=== PATIENT | female | born 1945 | race Caucasian/White ===

== ENCOUNTER 2021-08-17 03:18 | Outpatient (CLI) | payer MEDICARE, BC, SELFPAY ==
[2021-08-17 10:48] LABS: Source Nasal/Nares
[2021-08-17 14:23] LABS: COVID-19 PCR Negative (Negative)
== END 2021-08-17 03:19 | disposition home or self-care (01) ==
LOC: LBO 03:18
PROVIDERS: PCP Internal Medicine; Visit Provider Ophthalmology
DX: Z20.822 Contact with and (suspected) exposure to COVID-19 (principal); Z01.818 Encounter for other preprocedural examination
CPT/HCPCS: 87635

== ENCOUNTER 2021-08-20 07:50 | Day surgery (SDC) | payer MEDICARE, BC, SELFPAY ==
[2021-08-20 08:50] VITALS: BP 147/99; PULSE 72; RESP 16; TEMP 36.5; O2SAT 97
[2021-08-20] MEDS: Tropicam./Phenyleph. (1/2.5%) 5 ML BTL OS ×3 (09:04→09:17)
--- NOTE | 2021-08-20 09:24 | ANES.PREOP_ITS ---
General Info Date of Service Date Performed: 08/20/21 Height: 5 ft Weight: 63.9 kg Body Mass Index (BMI): 27.5 Surgical Procedure: Operation Date: 08/20/21 10:40 Proposed Procedures Side Surgeon p Cataract Extraction with IOL Implant Left Roberto Mckeon MD Meds Allergies and Home Medications Allergies Allergy/AdvReac Type Severity Reaction Status Date / Time diazepam Allergy Unknown Unknown Unverified 08/20/21 08:54 oxycodone Allergy Unknown Other (See Unverified 08/20/21 08:54 Comment) thiamine (vitamin B1) Allergy Unknown Itching Unverified 08/20/21 08:54 morphine AdvReac Intermediate Other (See Unverified 08/20/21 08:54 Comment) Home Medication Medication Instructions Recorded abatacept (with maltose) [Orencia 250 ml IV DIRECTED 08/16/21 (with maltose)] alendronate 70 mg PO QWEEK 08/16/21 aspirin 81 mg PO DAILY 08/16/21 cholecalciferol (vitamin D3) 25 mcg PO DAILY 08/16/21 [Vitamin D3] dulaglutide 0.75 mg SUBCUT QWEEK 08/16/21 fluoxetine 10 mg PO DAILY 08/16/21 folic acid 1 mg PO DAILY 08/16/21 ibuprofen 200 mg PO Q6H PRN 08/16/21 insulin aspart U-100 [Novolog 4 unit SUBCUT HS 08/16/21 U-100 Insulin aspart] insulin detemir U-100 16 unit SUBCUT BID 08/16/21 lisinopril 10 mg PO DAILY 08/16/21 metformin 1,000 mg PO BID 08/16/21 omeprazole 40 mg PO DAILY 08/16/21 pravastatin 10 mg PO DAILY 08/16/21 sitagliptin 100 mg PO DAILY 08/16/21 insulin detemir U-100 [Levemir 16 unit SUBCUT BID 08/20/21 Flexpen] Current Visit Medications: Current Medications Generic Name Dose Route Start Last Admin Trade Name Freq PRN Reason Stop Dose Admin Acetaminophen 1,000 mg 08/20/21 06:52 Acetaminophen 500 Mg Tab PO Q4H PRN PRN Miscellaneous Medication 0 ml 08/20/21 06:52 Prednisolone 1%, Moxifloxacin 0.5%, Nepafenac 0.1% 5ml Btl OS DIRECTED BARTOLOME Miscellaneous Medication 0 ml 08/20/21 06:52 08/20/21 09:17 Tropicam./Phenyleph. (1/2.5%) 5 Ml Btl OS 1 drp DIRECTED BARTOLOME Administration Tetracaine HCl 0 ml 08/20/21 06:52 Tetracaine 0.5% 4 Ml Btl OS DIRECTED [facility] Medical History Medical History (Updated 08/20/21 @ 08:51 by Viktoriya Barahona) Chest pain Per office note non-cardiac, has some right breast tenderness for few weeks prior to contusion to chest from wall. Will consider luan when hematomas clear Diabetes mellitus Dorsalgia HTN (hypertension) Hx of compression fracture of spine Hx of osteoarthritis Hx of sleep apnea Hypercalcemia Memory change Pulmonary fibrosis Seropositive rheumatoid arthritis Surgical History Surgical History History of carpal tunnel surgery left Hx of appendectomy Hx of cholecystectomy Hx of hysterectomy Hx of neck surgery Hx of tonsillectomy Tobacco Smoking/Tobacco Use Status: Former Tobacco Use Alcohol Alcohol Intake: current Alcohol intake frequency: holidays/special occasions only Substance Use Substance use: Never Substance use type: does not use Details: uses hemp oil Vital Signs and Lab Results Vital Signs Most Recent Vital Signs in EMR: Most Recent Vital Signs Temp Pulse Resp BP Pulse Ox 36.5 C 72 16 147/99 H 97 08/20/21 08:50 08/20/21 08:50 08/20/21 08:50 08/20/21 08:50 08/20/21 08:50 Point of Care Results Point of Care Results: Finger Stick Blood Glucose 140 08/20/21 08:56 Lab Results Blood Type / Crossmatch: No Data to Display Complete Blood Count: No Data to Display Complete Metabolic Panel: No Data to Display Liver Function Panel: No Data to Display Coagulation Panel: No Data to Display Cardiac Panel: No Data to Display Arterial Blood Gas: No Data to Display Venous Blood Gas: No Data to Display Pancreas Panel: No Data to Display Thyroid Panel: No Data to Display Infectious Disease: Coronavirus (COVID-19)(PCR) Negative (Negative) 08/17/21 08:50 08/17/21 Coronavirus 2019 Source Nasal/Nares 08/17/21 08:50 08/17/21 Blood Cultures: No Data to Display Toxicology Panel: No Data to Display Anesthesia Assessment and Plan Anesthesia History Personal History: PONV Family History: No Family History of Anesthesia Complications Exercise Tolerance Exercise Tolerance: Metabolic Equivalents>4 Pertinent Negatives Pertinent Negatives: No Symptoms of GERD (Well controlled with medication/ hx hiatal hernia), No Major Cardiovascular Symptoms or Complaints, No Major Pulmonary Symptoms or Complaints and No History of CVA/TIA Cardiac & Pulmonary Exam Cardiac Exam: Normal S1/S2 Heart Sounds and Heart Murmur Present Pulmonary Exam: Clear Bilateral Breath Sounds Implantable Cardiac Device Does patient have a Pacemaker or an ICD?: No Airway Exam Known Difficult Airway: No Mallampati Class: 1 Mouth Opening: Normal (> 3cm) Thyromental Distance: Greater than 3 cm Neck Range of Motion: Full ROM Neck Circumference: Normal Teeth Condition: Removable Dentures/Plates Upper and Removable Dentures/Plates Lower ASA Classification ASA Score: ASA 2 Emergency Case?: No NPO Status NPO Status: NPO Clears >2 hours, Solids >8 hours Anesthesia Plan Resuscitation Status: Full Code Anesthesia Technique: MAC Anesthesia Airway Planned: Natural Airway Monitors Used: Standard Monitors
[2021-08-20 09:26] VITALS: BMI 27.5
[2021-08-20] MEDS: Povidone-Iodine Ophth 30 ML BTL (09:43)
[2021-08-20] MEDS: Tetracaine 0.5% 4 ML BTL OS (09:43)
[2021-08-20] MEDS: Lidocaine 2% Jelly 6 ML SYR (09:43)
[2021-08-20] MEDS: Duovisc Viscoelastic System EACH 1 EACH (09:49)
[2021-08-20] MEDS: Balanced Salt Soln.-PLUS 500 ML BAG (09:49)
[2021-08-20] MEDS: Lidocaine 1% Pres-Free 5 ML VIAL (09:50)
--- NOTE | 2021-08-20 10:14 | PDOC.DSDIS_ITS ---
Discharge Plan Disposition Patient Disposition: HOME Condition: Good Discharge Details Attending Provider: Roberto Mckeon Primary Care Provider: Pedro Luis Anderson [facility] and New Rx's Prescriptions: No Action alendronate 70 mg Tablet 70 mg PO QWEEK RF: 0 omeprazole 40 mg Capsule,Delayed Release(Dr/Ec) 40 mg PO DAILY RF: 0 aspirin 81 mg Capsule,Delayed Release(Dr/Ec) 81 mg PO DAILY RF: 0 pravastatin 10 mg Tablet 10 mg PO DAILY RF: 0 insulin aspart U-100 [Novolog U-100 Insulin aspart] 100 unit/mL Solution 4 unit subcut HS RF: 0 metformin 1,000 mg Tablet 1,000 mg PO BID RF: 0 lisinopril 10 mg Tablet 10 mg PO DAILY RF: 0 fluoxetine 10 mg Capsule 10 mg PO DAILY RF: 0 ibuprofen 200 mg Tablet 200 mg PO Q6H PRNRF: 0 folic acid 1 mg Tablet 1 mg PO DAILY RF: 0 cholecalciferol (vitamin D3) [Vitamin D3] 25 mcg (1,000 unit) Capsule 25 mcg PO DAILY RF: 0 Orencia (with maltose) 250 mg Recon Soln 250 ml IV DIRECTED RF: 0 insulin detemir U-100 100 unit/mL (3 mL) Insulin Pen 16 unit SUBCUT BID RF: 0 sitagliptin 100 mg Tablet 100 mg PO DAILY RF: 0 dulaglutide 0.75 mg/0.5 mL Pen Injector 0.75 mg SUBCUT QWEEK RF: 0 Levemir Flexpen 100 unit/mL (3 mL) Insulin Pen 16 unit SUBCUT BID RF: 0 Discharge Instructions Stand Alone Forms: Post-op Topical Cataract, Yemi Ruby (DSU) Discharge Orders Discharge Orders: Discharge Order (Routine); Ordered 08/20/21 Ordered By: Roberto Mckeon DS: Diagnosis Discharge Diagnosis (1) Cortical cataract of left eye: Status: Resolved (2) Nuclear sclerotic cataract of left eye: Status: Resolved
[2021-08-20 10:15] VITALS: BP 189/72; PULSE 80; RESP 16; TEMP 36.4; O2SAT 95
--- NOTE | 2021-08-20 10:15 | W.ANESPOSTOP ---
Postoperative Evaluation Date, Time and Location Date Performed: 08/20/21 Time Performed: 10:15 Patient Location: Day Surgery Unit Vital Signs Most Recent Imported Vital Signs: Most Recent Vital Signs Temp Pulse Resp BP Pulse Ox 36.5 C 72 16 147/99 H 97 08/20/21 08:50 08/20/21 08:50 08/20/21 08:50 08/20/21 08:50 08/20/21 08:50 Most Recent Manually Entered Vital Signs: Adult Blood Pressure: 189/72 Heart Rate: 74 Respirations: 10 Oxygen Saturation (%): 95 Temperature (C): 36.4 C Pain Score (0-10 Scale): 0 Pain Score Most Recent Pain Score: Most Recent Pain Score Pain Level 0 08/20/21 08:50 Assessment Mental Status: Awake (Alert & Oriented to Patient Baseline) Airway and Respiratory Function: Patent airway with normal (patient baseline) respiratory exam Cardiovascular Function: Hemodynamically Stable Hydration Status: Adequately Hydrated Nausea & Vomiting: No Nausea or Vomiting Pain: Pt. Denies Any Pain Peripheral Nerve Block: Patient did not receive a nerve block
--- NOTE | 2021-08-20 10:16 | ROE_ITS ---
Date of service: 08/20/21 Time of Service: 10:16 Operative Note Operative Note DATE OF PROCEDURE: 08/20/21 PRE-OP DIAGNOSIS: Nuclear/cortical cataract, left eye POST-OP DIAGNOSIS: same PROCEDURE: Cataract extraction using phacoemulsification with intraocular lens implant, left eye SURGEON: Roberto Mckeon ANESTHESIA TYPE: Local By Surgeon and MAC Refer to Anesthesia Record PATHOLOGY: none sent COMPLICATIONS: None Patient was transported to: same day Patient's condition: stable Implants: Damion [employer] / [employer] Tecnis [id number] Indications: Progressive decreased vision due to cataract, left eye Procedure Description: CATARACT SURGERY OPERATIVE REPORT PREOPERATIVE DIAGNOSIS: 1. Nuclear/cortical cataract, left eye POSTOPERATIVE DIAGNOSIS: Same OPERATION: 1. Cataract extraction using phacoemulsification with posterior chamber intraocular lens implant, left eye. IOL: IOL Ranch Supervisor/Model: [employer] Damion / JILLIAN Tecnis [id number] IOL Power: + 26.0 diopters IOL Serial Number: [id number] Optic Diameter: 6.0 mm Haptic/Overall Diameter: 13.0 mm PHACO INFO: JooSM[employer] Suiteurion Vision System with OZil and Active Fluidics Cumulative Dispersed Energy (CDE): 8.75 seconds SURGEON: Roberto Mckeon MD, PHAN ANESTHESIA: Monitored A [facility] (MAC), with local sub-tenon's anesthetic infiltration COMPLICATIONS: None SPECIMENS: None INDICATIONS FOR PROCEDURE: The patient is a 75-year-old lady with history of diminished visual acuity in both eyes secondary to the development of bilateral nuclear and cortical cataract. The option of cataract surgery was offered to the patient and she felt she was symptomatic enough that she wished to proceed. PROCEDURE: The correct surgical eye was identified and marked as the left eye and the pupil was dilated in the preoperative area using mydriatics and cycloplegics. The dilated pupil size was 7.0 mm. She elected to proceed without oral sedation. The patient was brought to the operating room where cardiopulmonary monitoring was instituted and surgical time-out was performed, confirming the correct operative eye and IOL power. Topical anesthesia was administered and ophthalmic povidone-iodine 5% was instilled into the conjunctival fornices. Lidocaine gel was applied to the cornea and the ismael-ocular area was prepped with Betadine 10% solution and draped in the usual sterile fashion for intraocular surgery, including an aperture drape. A Tegaderm transparent film dressing was cut in half and used to cover the lashes and lid margins. Care was taken to sequester the lashes and lid margins under the Tegaderm dressing. A lid speculum was placed between the lids of the operative eye and the Cain-Karina operating microscope was maneuvered into position. Rohan scissors were then used to make a conjunctival buttonhole approximately 6mm posterior to the limbus in the inferonasal quadrant. Blunt dissection was carried out to expose bare sclera, and a blunt-tipped sub-tenon?s anesthesia cannula was introduced and passed posteriorly along the globe where non- preserved plain lidocaine was injected into posterior sub-Tenon?s space. A sideport knife was used to make a paracentesis port superiorly/superiortempo rally. Intraocular phenylephrine/lidocaine was injected int the anterior chamber.. The anterior chamber was filled with viscoelastic. A 2.4mm keratome knife was used to create a half-thickness groove at the limbus and then to construct a three-plane near-clear corneal tunnel extending 2.0mm into clear cornea at the 3:00 position. A flap was raised on the anterior capsule and capsulorhexis forceps were used to complete a continuous curvilinear capsulorhexis of 5.0 mm. The eye had to be fixated with the second hand, due to written, wild eye movements. Balanced salt solution was then used to perform cortical cleaving hydrodissection and nuclear hydrodelineation until the lens could be freely rotated within the capsular bag. The lens nucleus was then disassembled and removed within the capsular bag and iris plane using phacoemulsification. Residual cortical material was removed using the 45-degree angled silicone I/A tip with 0.3mm port. The posterior capsule was carefully polished to remove as much residual lens epithelial cells as safely possible. The capsular bag was then inflated and the anterior chamber deepened with viscoelastic. The lens implant described above was inserted into the capsular bag using the JILLIAN [place] Injector. A Kuglen hook was used to dial the IOL into position. Residual viscoelastic was then removed first from posterior to the IOL, then from the anterior chamber using the I/A handpiece. The lens implant was noted to center nicely within the capsular bag. The incisions were stromally hydrated, and the anterior chamber was reformed using BSS. Then 0.5cc of moxifloxacin 1.0mg/ml were injected into the capsular bag and anterior chamber. The incisions were checked with a Weck spear and found to be secure. Several drops of ophthalmic povidone-iodine 5% were then applied to the eye followed by two drops of Imprimis combination prednisolone/moxifloxacin/nepafenac solution. The drapes were removed and a clear plastic protective eye shield was placed over the eye. The patient was then returned to Same Day Surgery in stable condition.
[2021-08-20 10:17] VITALS: BP 189/72; PULSE 74; RESP 10; TEMPC 36.4; O2SAT 95
== END 2021-08-20 10:41 | disposition home or self-care (01) ==
PROVIDERS: PCP Family Medicine; Visit Provider Ophthalmology
PROC: (CPT 66984; principal; 2021-08-20 10:30)
DX: H25.12 Age-related nuclear cataract, left eye (principal); E11.9 Type 2 diabetes mellitus without complications; I10 Essential (primary) hypertension
CPT/HCPCS: 66984; V2632

== ENCOUNTER 2021-08-31 02:32 | Outpatient (CLI) | payer MEDICARE, BC, SELFPAY ==
[2021-08-31 11:19] LABS: Source Nasal/Nares
[2021-08-31 14:11] LABS: COVID-19 PCR Negative (Negative)
== END 2021-08-31 02:33 | disposition home or self-care (01) ==
LOC: LBO 02:32
PROVIDERS: PCP Family Medicine; Visit Provider Ophthalmology
DX: Z20.822 Contact with and (suspected) exposure to COVID-19 (principal); Z01.818 Encounter for other preprocedural examination
CPT/HCPCS: 87635

== ENCOUNTER 2021-09-03 08:05 | Day surgery (SDC) | payer MEDICARE, BC, SELFPAY ==
[2021-09-03 08:39] VITALS: BP 178/81; PULSE 67; RESP 16; TEMP 36; O2SAT 98
[2021-09-03 08:57] VITALS: BP 171/81; PULSE 70; RESP 16; TEMP 36.4; O2SAT 98
[2021-09-03] MEDS: Tropicam./Phenyleph. (1/2.5%) 5 ML BTL OD ×3 (09:00→09:10)
--- NOTE | 2021-09-03 09:21 | W.ANESPRE ---
General Info Date of Service Date Performed: 09/03/21 Height: 5 ft Weight: 64.3 kg Body Mass Index (BMI): 27.6 Surgical Procedure: Operation Date: 09/03/21 10:40 Proposed Procedures Side Surgeon p Cataract Extraction with IOL Implant Right Roberto Mckeon MD Meds Allergies and Home Medications Allergies Allergy/AdvReac Type Severity Reaction Status Date / Time diazepam Allergy Unknown Unknown Unverified 09/03/21 08:47 oxycodone Allergy Unknown Other (See Unverified 09/03/21 08:47 Comment) thiamine (vitamin B1) Allergy Unknown Itching Unverified 09/03/21 08:47 morphine AdvReac Intermediate Other (See Unverified 09/03/21 08:47 Comment) Home Medication Medication Instructions Recorded abatacept (with maltose) [Orencia 250 ml IV DIRECTED 08/16/21 (with maltose)] alendronate 70 mg PO QWEEK 08/16/21 aspirin 81 mg PO DAILY 08/16/21 cholecalciferol (vitamin D3) 25 mcg PO DAILY 08/16/21 [Vitamin D3] dulaglutide 0.75 mg SUBCUT QWEEK 08/16/21 fluoxetine 10 mg PO DAILY 08/16/21 folic acid 1 mg PO DAILY 08/16/21 ibuprofen 200 mg PO Q6H PRN 08/16/21 insulin aspart U-100 [Novolog 4 unit SUBCUT HS 08/16/21 U-100 Insulin aspart] insulin detemir U-100 16 unit SUBCUT BID 08/16/21 lisinopril 10 mg PO DAILY 08/16/21 metformin 1,000 mg PO BID 08/16/21 omeprazole 40 mg PO DAILY 08/16/21 pravastatin 10 mg PO DAILY 08/16/21 sitagliptin 100 mg PO DAILY 08/16/21 insulin detemir U-100 [Levemir 16 unit SUBCUT BID 08/20/21 Flexpen] Current Visit Medications: Current Medications Generic Name Dose Route Start Last Admin Trade Name Freq PRN Reason Stop Dose Admin Acetaminophen 1,000 mg 09/03/21 06:00 Acetaminophen 500 Mg Tab PO Q4H PRN PRN Miscellaneous Medication 0 ml 09/03/21 06:00 Prednisolone 1%, Moxifloxacin 0.5%, Nepafenac 0.1% 5ml Btl OD DIRECTED BARTOLOME Miscellaneous Medication 0 ml 09/03/21 06:00 09/03/21 09:10 Tropicam./Phenyleph. (1/2.5%) 5 Ml Btl OD 1 drp DIRECTED BARTOLOME Administration Tetracaine HCl 0 ml 09/03/21 06:00 Tetracaine 0.5% 4 Ml Btl OD DIRECTED BARTOLOME PFSH Active Problems Active Problems: Problem Status Onset Code Cortical cataract of left eye H26.9 Nuclear sclerotic cataract of left eye H25.12 Medical History Active Problem List (Updated 09/03/21 @ 09:35 by Roberto Mckeon MD) Nuclear sclerotic cataract of right eye (Acute) Cortical cataract of right eye (Acute) Medical History (Updated 09/03/21 @ 09:35 by Roberto Mckeon MD) Cataract, left eye Chest pain Per office note non-cardiac, has some right breast tenderness for few weeks prior to contusion to chest from wall. Will consider luan when hematomas clear Diabetes mellitus Dorsalgia HTN (hypertension) Hx of compression fracture of spine Hx of osteoarthritis Hx of sleep apnea Hypercalcemia Left cataract Memory change Pulmonary fibrosis Seropositive rheumatoid arthritis Surgical History Surgical History History of carpal tunnel surgery left Hx of appendectomy Hx of cholecystectomy Hx of hysterectomy Hx of neck surgery Hx of tonsillectomy Tobacco Smoking/Tobacco Use Status: Former Tobacco Use Alcohol Alcohol Intake: current Alcohol intake frequency: holidays/special occasions only Substance Use Substance use: Never Substance use type: does not use Details: uses hemp oil Vital Signs and Lab Results Vital Signs Most Recent Vital Signs in EMR: Most Recent Vital Signs Temp Pulse Resp BP Pulse Ox 36.4 C L 70 16 171/81 H 98 09/03/21 08:57 09/03/21 08:57 09/03/21 08:57 09/03/21 08:57 09/03/21 08:57 Point of Care Results Point of Care Results: Finger Stick Blood Glucose 178 09/03/21 09:00 Lab Results Blood Type / Crossmatch: No Data to Display Complete Blood Count: No Data to Display Complete Metabolic Panel: No Data to Display Liver Function Panel: No Data to Display Coagulation Panel: No Data to Display Cardiac Panel: No Data to Display Arterial Blood Gas: No Data to Display Venous Blood Gas: No Data to Display Pancreas Panel: No Data to Display Thyroid Panel: No Data to Display Infectious Disease: Coronavirus (COVID-19)(PCR) Negative (Negative) 08/31/21 09:15 08/31/21 Coronavirus 2019 Source Nasal/Nares 08/31/21 09:15 08/31/21 Blood Cultures: No Data to Display Toxicology Panel: No Data to Display Anesthesia Assessment and Plan Anesthesia History Personal History: PONV Family History: No Family History of Anesthesia Complications Exercise Tolerance Exercise Tolerance: Metabolic Equivalents>4 Pertinent Negatives Pertinent Negatives: No Symptoms of GERD Cardiac & Pulmonary Exam Cardiac Exam: Normal S1/S2 Heart Sounds Pulmonary Exam: Clear Bilateral Breath Sounds Implantable Cardiac Device Does patient have a Pacemaker or an ICD?: No Airway Exam Known Difficult Airway: No Mallampati Class: 1 Mouth Opening: Normal (> 3cm) Thyromental Distance: Greater than 3 cm Neck Range of Motion: Full ROM Neck Circumference: Normal Teeth Condition: Removable Dentures/Plates Upper and Removable Dentures/Plates Lower ASA Classification ASA Score: ASA 2 Emergency Case?: No NPO Status NPO Status: NPO Clears >2 hours, Solids >8 hours Anesthesia Plan Resuscitation Status: Full Code Anesthesia Technique: MAC Anesthesia Airway Planned: Natural Airway Monitors Used: Standard Monitors
--- NOTE | 2021-09-03 09:35 | W.PM.DSUDISC ---
Discharge Plan Disposition Patient Disposition: HOME Condition: Good Discharge Details Attending Provider: Roberto Mckeon Primary Care Provider: Pedro Luis Anderson [facility] and New Rx's Prescriptions: No Action alendronate 70 mg Tablet 70 mg PO QWEEK RF: 0 omeprazole 40 mg Capsule,Delayed Release(Dr/Ec) 40 mg PO DAILY RF: 0 aspirin 81 mg Capsule,Delayed Release(Dr/Ec) 81 mg PO DAILY RF: 0 pravastatin 10 mg Tablet 10 mg PO DAILY RF: 0 insulin aspart U-100 [Novolog U-100 Insulin aspart] 100 unit/mL Solution 4 unit subcut HS RF: 0 metformin 1,000 mg Tablet 1,000 mg PO BID RF: 0 lisinopril 10 mg Tablet 10 mg PO DAILY RF: 0 fluoxetine 10 mg Capsule 10 mg PO DAILY RF: 0 ibuprofen 200 mg Tablet 200 mg PO Q6H PRNRF: 0 folic acid 1 mg Tablet 1 mg PO DAILY RF: 0 cholecalciferol (vitamin D3) [Vitamin D3] 25 mcg (1,000 unit) Capsule 25 mcg PO DAILY RF: 0 Orencia (with maltose) 250 mg Recon Soln 250 ml IV DIRECTED RF: 0 insulin detemir U-100 100 unit/mL (3 mL) Insulin Pen 16 unit SUBCUT BID RF: 0 sitagliptin 100 mg Tablet 100 mg PO DAILY RF: 0 dulaglutide 0.75 mg/0.5 mL Pen Injector 0.75 mg SUBCUT QWEEK RF: 0 Levemir Flexpen 100 unit/mL (3 mL) Insulin Pen 16 unit SUBCUT BID RF: 0 Discharge Instructions Stand Alone Forms: Post-op Topical Cataract, Yemi Ruby (DSU) DS: Diagnosis Discharge Diagnosis (1) Cortical cataract of right eye: Status: Resolved (2) Nuclear sclerotic cataract of right eye: Status: Resolved
[2021-09-03] MEDS: Povidone-Iodine Ophth 30 ML BTL (09:37)
[2021-09-03 09:43] VITALS: BMI 27.6
[2021-09-03] MEDS: Balanced Salt Soln.-PLUS 500 ML BAG (09:48)
[2021-09-03] MEDS: Duovisc Viscoelastic System EACH 1 EACH (09:48)
[2021-09-03] MEDS: Lidocaine 2% Jelly 6 ML SYR (09:49)
[2021-09-03 10:10] VITALS: BP 170/79; PULSE 85; RESP 16; TEMP 36.5; O2SAT 96
--- NOTE | 2021-09-03 10:10 | ROE_ITS ---
Date of service: 09/03/21 Time of Service: 10:11 Operative Note Operative Note DATE OF PROCEDURE: 09/03/21 PRE-OP DIAGNOSIS: Nuclear/cortical cataract, right eye POST-OP DIAGNOSIS: same PROCEDURE: Cataract extraction using phacoemulsification with intraocular lens implant, right eye SURGEON: Roberto Mckeon ANESTHESIA TYPE: Local By Surgeon and MAC Refer to Anesthesia Record ESTIMATED BLOOD LOSS: 0 PATHOLOGY: none sent COMPLICATIONS: None Patient was transported to: same day Patient's condition: stable Implants: [employer]/JILLIAN Tecnis [id number] Indications: Progressive visual loss due to cataract, right eye Procedure Description: CATARACT SURGERY OPERATIVE REPORT PREOPERATIVE DIAGNOSIS: 1. Nuclear/cortical cataract, right eye POSTOPERATIVE DIAGNOSIS: Same OPERATION: 1. Cataract extraction using phacoemulsification with posterior chamber intraocular lens implant, right eye. IOL: IOL Street [employer] Equipment Operator/Model: [employer] / JILLIAN Tecnis [id number] IOL Power: + 26.0 diopters IOL Serial Number: [id number] Optic Diameter: 6.0mm Haptic/Overall Diameter: 13.0mm PHACO INFO: Joo [employer]ion Vision System with OZil and Active Fluidics Cumulative Dispersed Energy (CDE): 6.16 seconds SURGEON: Roberto Mckeon MD, PHAN ANESTHESIA: Monitored Anesthesia Care (MAC), with local sub-tenon's anesthetic infiltration COMPLICATIONS: None SPECIMENS: None INDICATIONS FOR PROCEDURE: The patient is a 75-year-old lady with history of diminished visual acuity in her right eye secondary to the development of nuclear/cortical cataract. She has already undergone cataract surgery in the left eye and is doing well postoperatively. She now presents for cataract surgery in the right eye. PROCEDURE: The correct surgical eye was identified and marked as the right eye and the pupil was dilated in the preoperative area using mydriatics and cycloplegics. The dilated pupil size was 6.0 mm. She elected to proceed without oral sedation. The patient was brought to the operating room where cardiopulmonary monitoring was instituted and surgical time-out was performed, confirming the correct operative eye and IOL power. Topical anesthesia was administered and ophthalmic povidone-iodine 5% was instilled into the conjunctival fornices. Lidocaine gel was applied to the cornea and the ismael-ocular area was prepped with Betadine 10% solution and draped in the usual sterile fashion for intraocular surgery, including an aper ture drape. A Tegaderm transparent film dressing was cut in half and used to cover the lashes and lid margins. Care was taken to sequester the lashes and lid margins under the Tegaderm dressing. A lid speculum was placed between the lids of the operative eye and the Cain-Karina operating microscope was maneuvered into position. Rohan scissors were then used to make a conjunctival buttonhole approximately 6mm posterior to the limbus in the inferonasal quadrant. Blunt dissection was carried out to expose bare sclera, and a blunt-tipped sub-tenon?s anesthesia cannula was introduced and passed posteriorly along the globe where non- preserved plain lidocaine was injected into posterior sub-Tenon?s space. A sideport knife was used to make a paracentesis port inferotemporally. Intraocular phenylephrine/lidocaine was injected into the anterior chamber. The anterior chamber was filled with viscoelastic. A 2.4mm keratome knife was used to create a half-thickness groove at the limbus and then to construct a three- plane near-clear corneal tunnel extending 2.0mm into clear cornea superiortemporally. A flap was raised on the anterior capsule and capsulorhexis forceps were used to complete a continuous curvilinear capsulorhexis of 5.0 mm. Balanced salt solution was then used to perform cortical cleaving hydrodissection and nuclear hydrodelineation until the lens could be freely rot ated within the capsular bag. The lens nucleus was then disassembled and removed within the capsular bag and iris plane using phacoemulsification. Residual cortical material was removed using the I/A handpiece. The posterior capsule was carefully polished to remove as much residual lens epithelial cells as safely possible. The capsular bag was then inflated and the anterior chamber deepened with viscoelastic. The lens implant described above was inserted into the capsular bag using the JILLIAN Kiana Injector. A Kuglen hook was used to dial the IOL into position. Residual viscoelastic was then removed first from posterior to the IOL, then from the anterior chamber using the I/A handpiece. The lens implant was noted to center nicely within the capsular bag. The incisions were stromally hydrated, and the anterior chamber was reformed using BSS. Then 0.5cc of moxifloxacin 1.0mg/ml were injected into the capsular bag and anterior chamber. The incisions were checked with a Weck spear and found to be secure. Several drops of ophthalmic povidone-iodine 5% were then applied to the eye followed by two drops of Imprimis combination prednisolone/moxifloxacin/nepafenac solution. The drapes were removed and a clear plastic protective eye shield was placed over the eye. The patient was then returned to [facility] Day Surgery in stable condition.
--- NOTE | 2021-09-03 10:22 | W.ANESPOSTOP ---
Postoperative Evaluation Date, Time and Location Date Performed: 09/03/21 Time Performed: 10:23 Patient Location: Day Surgery Unit Vital Signs Most Recent Imported Vital Signs: Most Recent Vital Signs Temp Pulse Resp BP Pulse Ox 36.5 C 85 16 170/79 H 96 09/03/21 10:10 09/03/21 10:10 09/03/21 10:10 09/03/21 10:10 09/03/21 10:10 Pain Score Most Recent Pain Score: Most Recent Pain Score Pain Level 0 09/03/21 10:10 Assessment Mental Status: Awake (Alert & Oriented to Patient Baseline) Airway and Respiratory Function: Patent airway with normal (patient baseline) respiratory exam Cardiovascular Function: Hemodynamically Stable Hydration Status: Adequately Hydrated Nausea & Vomiting: No Nausea or Vomiting Pain: Pt. Denies Any Pain Peripheral Nerve Block: Other (Local by Dr. Mckeon)
== END 2021-09-03 10:45 | disposition home or self-care (01) ==
PROVIDERS: PCP Family Medicine; Visit Provider Ophthalmology
PROC: (CPT 66984; principal; 2021-09-03 10:30)
DX: H25.11 Age-related nuclear cataract, right eye (principal); E11.9 Type 2 diabetes mellitus without complications; I10 Essential (primary) hypertension; Z79.84 Long term (current) use of oral hypoglycemic drugs; Z79.4 Long term (current) use of insulin
CPT/HCPCS: 66984; V2632